=== PATIENT | female | born 1970 | race African-American/Black ===

== ENCOUNTER 2019-10-12 09:05 | Emergency (ER) | payer OTHER ==
[~2019-10-12] VITALS: Ht 162.6 cm; Wt 64.4 kg
--- NOTE | 2019-10-12 09:57 | EKG ---
[place] [address] [facility] [place] [address] ELECTROCARDIOGRAM REPORT Name: LOUIS TRAN Room #: [facility] M.R.#: [id number] Admission: Attend Phys: Discharge: Date of : 74 Report #: [id number] THIS REPORT FOR: //name// 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
[2019-10-12 10:38] LABS: HEMATOCRIT 40.9 % (37.0-47.0); HEMOGLOBIN 13.7 gm/dL (12.0-15.0); MCH 30.3 pg (26.0-34.0); MCHC 33.5 g/dL (28.0-37.0); MCV 90.5 fL (80.0-100.0); PLATELET COUNT 399 thou/uL (150-400); RBC 4.52 mil/uL (4.20-5.00); RDW 13.7 % (10.5-14.5); WBC 20.8 thou/uL (4.0-11.0)
[2019-10-12 10:53] LABS: ANION GAP 5 mmol/L (7-16); BUN 7 mg/dL (7-18); CALCIUM 9.9 mg/dL (8.5-10.1); CHLORIDE 103 mmol/L (98-107); CO2 32 mmol/L (21-32); CREATININE 0.9 mg/dL (0.6-1.0); GLUCOSE 115 mg/dL (74-106); SODIUM 140 mmol/L (136-145)
[2019-10-12 11:04] LABS: ALBUMIN 3.5 g/dL (3.4-5.0); LIPASE 1754 U/L (73-393); SGOT 19 U/L (15-37); SGPT 24 U/L (30-65); TOTAL BILIRUBIN 0.3 mg/dL (<0.1-1.0); TOTAL PROTEIN 7.5 g/dL (6.4-8.2); TROPONIN-I <0.06 ng/mL (<0.06)
[2019-10-12] MEDS ORDERED: ZOFRAN ODT4 MG PO (12:06)
[2019-10-12] MEDS ORDERED: TRAMADOL 50 MG50 MG PO (12:06)
[2019-10-12 12:57] VITALS: BP 132/80
[2019-10-12 13:22] LABS: ABSOLUTE NEUTROPHILS 16.6 thou/uL (1.4-8.2)
== END 2019-10-12 12:58 | disposition home or self-care (01) ==
LOC: ER 09:05
PROVIDERS: Student in an Organized Health Care Education/Training Program
DX: K85.90 Acute pancreatitis without necrosis or infection, unspecified (principal); R07.89 Other chest pain; R11.2 Nausea with vomiting, unspecified; Z88.0 Allergy status to penicillin